=== PATIENT | male | born 1980 | race Caucasian/White ===

== ENCOUNTER 2017-08-10 10:39 | Emergency (ER) | payer BC ==
[2017-08-10] MEDS ORDERED: Sodium Chloride 0.9% 1,000 ML IV STA (11:07)
[2017-08-10] MEDS ORDERED: Sodium Chloride 0.9% 10 ML Syringe FLUSH PRN (11:07)
[2017-08-10] MEDS ORDERED: Famotidine 20 MG/2 ML SDV IVPUSH ONE (11:10)
--- NOTE | 2017-08-10 13:05 | US ---
Limited abdominal ultrasound: Multiple real-time images of the right upper abdomen were obtained. Comparison: No prior abdominal ultrasound. Liver shows no focal parenchymal abnormality. Common bile duct measures around 7 mm. No gallbladder wall thickening or biliary duct dilatation is seen. Pancreas appears within normal limits. Right kidney shows no hydronephrosis or mass and has a length of 10.3 cm. Inferior vena cava is patent. Portal vein shows normal hepatopedal flow. Impression: 1. Common bile duct at the upper limits of normal at 7 mm. No gallbladder wall thickening, cholelithiasis or pericholecystic fluid is seen. CBD is likely normal variant but please correlate that patient has no abnormal biliary enzymes. 2. Other portions of the right upper quadrant abdominal ultrasound are unremarkable. Diagnostic code #3
--- NOTE | 2017-08-10 13:43 | EDM.PDOC ---
ED HPI GENERAL MEDICAL PROBLEM - General Chief Complaint: Abdominal Pain Stated Complaint: UPPER ABDOMINAL PAIN Time Seen by Provider: 08/10/17 10:59 Source of Information: Reports: Patient History Limitations: Reports: No Limitations - History of Present Illness INITIAL COMMENTS - FREE TEXT/NARRATIVE: The patient presents with epigastric pain. This all started on the . He was on the way to do a job in [place] and he started not feeling well. He had some body aches and he had nausea and vomiting. This epigastric pain started then. He got better a couple days ago and went to the walk in clinic. She did some labs and a stool study. She put him on some prevecid. He had constant pain this morning and it was sharp. He tried to get into Dr Jerry. She was concerned and sent him over. He has no SOB. He did have some chills and he felt feverish a few days ago. He has no cough, congestion or runny nose. He has no chest pain, nausea or vomiting. He has no history of heart problems, HTN , diabetes or hypercholesterolemia. He does smoke. Onset: Gradual Duration: Day(s): (4) Location: Reports: Abdomen (Epigastric) Quality: Reports: Sharp Severity: Moderate Improves with: Reports: None Worsens with: Reports: None Associated Symptoms: Reports: Fever/Chills. Denies: Chest Pain, Cough, Nausea/ Vomiting, Shortness of Breath Epigastric Pain Score (Numeric/FACES): 1 - Related Data Allergies Allergy/AdvReac Type Severity Reaction Status Date / Time Penicillins Allergy Difficulty Verified 08/10/17 10:48 Breathing Home Meds: Home Meds Lansoprazole [Prevacid] 30 mg PO DAILY 08/10/17 [History] Past Medical History - Past Health History Medical/Surgical History: Denies Medical/Surgical History Cardiovascular History: Reports: None Respiratory History: Reports: None Gastrointestinal History: Reports: GERD Genitourinary History: Reports: None Neurological History: Reports: None Psychiatric History: Reports: None Dermatologic History: Reports: None - Past Surgical History Male Surgical History: Reports: None Other Musculoskeletal Surgeries/Procedures:: plate and screws in jaw Social & Family History - Tobacco Use Smoking Status *Q: Current Every Day Smoker Years of Tobacco use: 20 Packs/Tins Daily: 1 Used Tobacco, but Quit: No Second Hand Smoke Exposure: No - Caffeine Use Caffeine Use: Reports: Energy Drinks - Recreational Drug Use Recreational Drug Use: No ED ROS GENERAL - Review of Systems Review Of Systems: See Below Constitutional: Reports: Chills. Denies: Fever HEENT: Reports: No Symptoms Respiratory: Reports: No Symptoms Cardiovascular: Reports: No Symptoms Endocrine: Reports: No Symptoms GI/Abdominal: Reports: Abdominal Pain. Denies: Diarrhea, Nausea, Vomiting Musculoskeletal: Reports: No Symptoms Skin: Reports: No Symptoms ED EXAM, GI/ABD - Physical Exam Exam: See Below Exam Limited By: No Limitations General Appearance: Alert, No Apparent Distress Ears: Normal External Exam Nose: Normal Inspection Head: Atraumatic, Normocephalic Neck: Normal Inspection Respiratory/Chest: No Respiratory Distress, Lungs Clear, Normal Breath Sounds Cardiovascular: Regular Rate, Rhythm, No Edema, No Murmur GI/Abdominal Exam: Soft, No Organomegaly, No Mass, Tender (Mild tenderness to the eipigastric region) EKG INTERPRETATION EKG Date: 08/10/17 Time: 13:52 Rhythm: Other (Sinus bradycardia) Rate (Beats/Min): 53 [place]: Normal P-Wave: Present QRS: Normal ST-T: Other (Normal early repol) QT: Normal Course - Vital Signs Last Recorded V/S: Last Vital Signs Temp 98.0 F 08/10/17 13:44 Pulse 64 08/10/17 13:44 Resp 18 08/10/17 13:44 BP 116/77 08/10/17 13:44 Pulse Ox 97 08/10/17 13:44 - Orders/Labs/Meds Orders: Active Orders 24 hr Category Date Time Status EKG Documentation Completion [RC] ASDIRECTED Care 08/10/17 13:45 Active Peripheral IV Care [RC] . DIRECTED Care 08/10/17 11:08 Active Abdomen Series w Chest 1V [CR] Stat Exams 08/10/17 11:07 Taken Sodium Chloride 0.9% [Saline Flush] Med 08/10/17 11:07 Active 10 ml FLUSH ASDIRECTED PRN Peripheral IV Insertion Adult [OM.PC] Stat Oth 08/10/17 11:07 Ordered EKG 12 Lead [EK] Stat Ther 08/10/17 13:45 Ordered Medication Orders Sodium Chloride (Saline Flush) 10 ml FLUSH ASDIRECTED PRN PRN Reason: Keep Vein Open Last Admin: 08/10/17 11:15 Dose: 10 ml Labs: Laboratory Tests 08/10/17 08/10/17 08/10/17 Range/Units 10:58 10:58 10:58 WBC 6.25 (4.23-9.07) K/mm3 RBC 4.80 (4.63-6.08) M/mm3 Hgb 15.7 (13.7-17.5) gm/L Hct 45.9 (40.1-51.0) % MCV 95.6 H (79.0-92.2) fl MCH 32.7 H (25.7-32.2) pg MCHC 34.2 (32.2-35.5) g/dl RDW Std Deviation 45.7 H (35.1-43.9) fL Plt Count 193 (163-337) K/mm3 MPV 10.9 (9.4-12.3) fl Neut % (Auto) 63.5 (34.0-67.9) % Lymph % (Auto) 23.5 (21.8-53.1) % [place] % (Auto) 10.1 (5.3-12.2) % Eos % (Auto) 2.1 (0.8-7.0) Baso % (Auto) 0.6 (0.1-1.2) % Neut # (Auto) 3.97 (1.78-5.38) K/mm3 Lymph # (Auto) 1.47 (1.32-3.57) K/mm3 [place] # (Auto) 0.63 (0.30-0.82) K/mm3 Eos # (Auto) 0.13 (0.04-0.54) K/mm3 Baso # (Auto) 0.04 (0.01-0.08) K/mm3 Manual Slide Review Normal smear Sodium 141 (136-145) mEq/L Potassium 4.2 (3.5-5.1) mEq/L Chloride 104 (98-107) mEq/L Carbon Dioxide 30 (21-32) mEq/L Anion Gap 11.2 (5-15) BUN 11 (7-18) mg/dL Creatinine 1.0 (0.7-1.3) mg/dL Est Cr Clr Drug Dosing TNP Estimated GFR (MDRD) > 60 (>60) mL/min BUN/Creatinine Ratio 11.0 L (14-18) Glucose 98 (74-106) mg/dL Calcium 9.3 (8.5-10.1) mg/dL Total Bilirubin 0.6 (0.2-1.0) mg/dL AST 20 (15-37) U/L ALT 21 (16-63) U/L Alkaline Phosphatase 63 (46-116) U/L Troponin I < 0.017 (0.00-0.056) ng/mL Total Protein 7.5 (6.4-8.2) g/dl Albumin 3.8 (3.4-5.0) g/dl Globulin 3.7 gm/dL Albumin/Globulin Ratio 1.0 (1-2) Lipase 73 (73-393) U/L H. pylori IgG Antibody Negative (NEGATIVE) Meds: Medications Generic Name Dose Route Start Last Admin Trade Name Freq PRN Reason Stop Dose Admin Sodium Chloride 10 ml 08/10/17 11:07 08/10/17 11:15 Saline Flush FLUSH 10 ml ASDIRECTED PRN Administration Keep Vein Open Discontinued Medications Generic Name Dose Route Start Last Admin Trade Name Freq PRN Reason Stop Dose Admin Famotidine 20 mg 08/10/17 11:10 08/10/17 11:15 Pepcid IVPUSH 08/10/17 11:11 20 mg ONETIME ONE Administration Sodium Chloride 1,000 mls @ 1,000 mls/hr 08/10/17 11:07 08/10/17 12:40 Normal Saline IV 08/10/17 12:06 1,000 mls/hr .BOLUS STA Administration - Re-Assessments/Exams Free Text/Narrative Re-Assessment/Exam: 08/10/17 13:56 I ordered an IV NS 1L bolus, pepcid 20mg IV, labs, EKG and an US of his gallbladder. His CBC and CMP look good. His troponin, H-pylori, and lipase are negative. His EKG shows a sinus bradycardia with no acute changes. His US of his gallbladder snows an slightly dilated common bile duct at 7mm. He has no elevated bilirubin. It appears he has some gastritis. I will discharge him home. Departure - Departure Time of Disposition: 14:00 Disposition: Home, Self-Care 01 Condition: Good Clinical Impression: Abdominal pain Qualifiers: Abdominal location: epigastric Qualified Code(s): R10.13 - Epigastric pain Gastritis Qualifiers: Gastritis type: unspecified gastritis Chronicity: acute Gastritis bleeding: without bleeding Qualified Code(s): K29.00 - Acute gastritis without bleeding - Discharge Information Referrals: Sheila Jerry DO [Primary Care Provider] - 1 Week Forms: ED Department Discharge Additional Instructions: Take your medication as prescribed. Start with a bland diet and advance as tolerated. Drink plenty of fluids. Please return if you are worse or follow up with Dr Jerry as needed. - My Orders Last 24 Hours: My Active Orders 08/10/17 11:07 Abdomen Series w Chest 1V [CR] Stat Sodium Chloride 0.9% [Saline Flush] 10 ml FLUSH ASDIRECTED PRN Peripheral IV Insertion Adult [OM.PC] Stat 08/10/17 11:08 Peripheral IV Care [RC] . DIRECTED 08/10/17 13:45 EKG Documentation Completion [RC] ASDIRECTED EKG 12 Lead [EK] Stat - Assessment/Plan Last 24 Hours: My Active Orders 08/10/17 11:07 Abdomen Series w Chest 1V [CR] Stat Sodium Chloride 0.9% [Saline Flush] 10 ml FLUSH ASDIRECTED PRN Peripheral IV Insertion Adult [OM.PC] Stat 08/10/17 11:08 Peripheral IV Care [RC] . DIRECTED 08/10/17 13:45 EKG Documentation Completion [RC] ASDIRECTED EKG 12 Lead [EK] Stat
--- NOTE | 2017-08-10 14:10 | CR ---
Abdominal series: Supine and upright views of the abdomen were obtained as well as frontal view of the chest. Comparison: No prior study. Heart size and mediastinum are normal. Lungs are clear. No free air is is seen. Bowel gas pattern appears normal. Several calcifications are seen within the pelvis which are compatible phleboliths. No discrete soft tissue abnormality is seen. No bony abnormality is seen. Impression: 1. Incidental findings. Nothing acute is seen on abdominal series. Diagnostic code #2
[2017-08-10 15:42] VITALS: BP 115/83
== END 2017-08-10 14:10 | disposition home or self-care (01) ==
LOC: JD.ED 10:39
DX: K29.00 Acute gastritis without bleeding (principal); F17.210 Nicotine dependence, cigarettes, uncomplicated; Z88.0 Allergy status to penicillin; Z79.899 Other long term (current) drug therapy
CPT/HCPCS: 36415; 74022; 76705; 80053; 83690; 84484; 85025; 86677; 93005; 96361; 96374; 99285; J7040; J7050; 93010; 99284-25

== ENCOUNTER 2022-07-10 21:12 | Emergency (ER) | payer BC ==
[2022-07-10 21:42] VITALS: BP 140/84; PULSE 60
[2022-07-10] MEDS ORDERED: Fluorescein 1 MG Ophth Strip EYELF ONE (21:50)
[2022-07-10] MEDS ORDERED: Ciprofloxacin 0.3% Ophth Soln 5 ML Bottle EYELF SCH (22:15)
== END 2022-07-10 22:20 | disposition home or self-care (01) ==
LOC: JD.ED 21:12
DX: S05.02XA Injury of conjunctiva and corneal abrasion without foreign body, left eye, initial encounter (principal); F17.210 Nicotine dependence, cigarettes, uncomplicated; Z88.0 Allergy status to penicillin
CPT/HCPCS: 99283; A9270

== ENCOUNTER 2024-03-26 10:53 | Emergency (ER) | payer SELFPAY ==
[2024-03-26 11:09] LABS: BASOPHILS PERCENT AUTO 0.4 % (0.0-1.0); EOSINOPHILS ABSOLUTE AUTO 0.1 K/mm3 (0.0-0.4); HEMATOCRIT 50.7 % (42.0-52.0); HEMOGLOBIN 17.6 gm/dl (14.0-18.0); IMMATURE GRAN ABSOLUTE AUTO 0.01 K/mm3 (0.00-0.05); IMMATURE GRAN PERCENT AUTO 0.1 % (0.0-0.4); LYMPHOCYTES ABSOLUTE AUTO 1.9 K/mm3 (1.0-4.8); LYMPHOCYTES PERCENT AUTO 18.4 % (24.0-44.0); MEAN CORPUSCULAR HEMOGLOBIN 32.1 pg (28.0-32.0); MEAN CORPUSCULAR HGB CONC 34.7 g/dl (32.0-36.0); MEAN CORPUSCULAR VOLUME 92.5 fl (83.0-99.0); MEAN PLATELET VOLUME 10.6 fl (9.4-12.4); MONOCYTES ABSOLUTE AUTO 1.1 K/mm3 (0.0-0.8); MONOCYTES PERCENT AUTO 10.7 % (0.0-8.0); NEUTROPHILS ABSOLUTE AUTO 7.1 K/mm3 (1.8-7.7); NEUTROPHILS PERCENT AUTO 69.4 % (41.0-71.0); PLATELET COUNT,PLT 241 K/mm3 (150-400); RED BLOOD CELL COUNT 5.48 M/mm3 (4.52-5.90); WHITE BLOOD CELL COUNT,WBC 10.27 K/mm3 (3.9-11.3)
[2024-03-26 11:30] LABS: INR 1.03; PROTHROMBIN TIME 10.9 SECONDS (9.7-12.0)
[2024-03-26 11:32] LABS: D-DIMER QUANTITATIVE < 0.19 mg/L (0.19-0.50); PTT,PARTIAL THROMBOPLSTIN TIME 30.8 SECONDS (21.7-31.4)
[2024-03-26 11:39] LABS: A/G RATIO 1.2 (1-2); ALBUMIN 3.8 g/dl (3.4-5.0); ANION GAP 12.2 (5-15); BILIRUBIN TOTAL 0.5 mg/dL (0.2-1.0); BUN/CREATININE RATIO 10.9 (14-18); CALCIUM 9.1 mg/dL (8.5-10.1); CREATININE 1.1 mg/dL (0.7-1.3); EST CRCL DRUG DOSING (CG) 96.85 mL/min; MAGNESIUM 2.1 mg/dL (1.8-2.4); POTASSIUM,K 3.2 mEq/L (3.5-5.1)
[2024-03-26] MEDS: Aspirin 81 MG Tab.Chew PO ONE (11:41)
[2024-03-26] MEDS: Lactated Ringers 1,000 ML IV SCH (12:23)
[2024-03-26] MEDS: Acetaminophen 325 MG Tab PO ONE (12:25)
[2024-03-26 12:28] LABS: BARBITURATE SCREEN,URINE NEGATIVE (CUTOFF=200); BENZODIAZEPINES SCREEN,URINE NEGATIVE (CUTOFF=150); BUPRENORPHINE SCREEN,URINE NEGATIVE (CUTOFF=10); METHADONE SCREEN, URINE NEGATIVE (CUT0FF=200); METHAMPHETAMINES SCREEN, URINE PRESUMPTIVE POSITIVE (CUTOFF=500); OXYCODONE SCREEN,URINE NEGATIVE (CUT0FF=100); THC SCREEN,URINE 20 NG/ML NEGATIVE (CUTOFF=50)
[2024-03-26 12:29] LABS: AMPHETAMINES SCREEN, URINE PRESUMPTIVE POSITIVE (CUTOFF=500)
[2024-03-26 12:29] LABS: CORONAVIRUS COVID-19 NAA NEGATIVE (NEGATIVE); INFLUENZA A NAA NEGATIVE (NEGATIVE); RESPIRATORY SYNCYTIAL VIR NAA NEGATIVE (NEGATIVE)
[2024-03-26] MEDS: Potassium Chloride 10 MEQ Tab.ER PO ONE (13:35)
[2024-03-26] MEDS: Alum Hydrox/Mag Hydrox/Simeth 30 ML, Lidocaine 2% 15 ML PO ONE (13:35)
[2024-03-26 16:35] VITALS: BP 127/81; PULSE 85
== END 2024-03-26 15:28 | disposition home or self-care (01) ==
LOC: JD.ED 10:53
DX: R07.89 Other chest pain (principal); S62.312A Displaced fracture of base of third metacarpal bone, right hand, initial encounter for closed fracture; F15.10 Other stimulant abuse, uncomplicated; F17.200 Nicotine dependence, unspecified, uncomplicated; Z88.0 Allergy status to penicillin; X58.XXXA Exposure to other specified factors, initial encounter
CPT/HCPCS: 0241U; 36415; 71045; 73130; 80053; 80306; 83735; 83880; 84484; 85025; 85379; 85610; 85730; 93005; 96360; 96361; 99285; A9270; J7120